=== PATIENT | male | born 1995 | race Caucasian/White ===

== ENCOUNTER 2023-05-13 02:45 | Emergency (ER) | payer BC ==
[~2023-05-13] VITALS: Ht 180.3 cm; Wt 117.9 kg
[2023-05-13 02:54] VITALS: BP_SYST 133; PULSE 82; RESP 20; TEMP 97.7; O2SAT 97
[2023-05-13] MEDS ORDERED: IBUPROFEN 600 MG TABLET PO ONE (03:00)
[2023-05-13 03:31] LABS: COVID19 ANTIGEN SOFIA FIA NEGATIVE (NEGATIVE)
[2023-05-13 03:32] LABS: INFLUENZA TYPE A Negative (NEGATIVE); INFLUENZA TYPE B NEGATIVE (NEGATIVE)
[2023-05-13] MEDS ORDERED: METH-776 PO ×3 (03:44→04:08)
[2023-05-13] MEDS ORDERED: LIDVIS100 MM ×3 (03:44→04:08)
[2023-05-13 03:46] LABS: STREPTOCOCCUS A SCREEN (RAPID) POSITIVE (NEGATIVE)
[2023-05-13] MEDS ORDERED: AMOX500C2 PO ×3 (03:47→04:08)
[2023-05-13 04:12] VITALS: BP_SYST 130; PULSE 80; RESP 18; TEMP 97.8; O2SAT 97
== END 2023-05-13 04:12 | disposition home or self-care (01) ==
LOC: SED 02:45
DX: J02.0 Streptococcal pharyngitis (principal); R07.0 Pain in throat; Z79.899 Other long term (current) drug therapy; Z20.822 Contact with and (suspected) exposure to COVID-19
CPT/HCPCS: 36415; 86403; 99283